=== PATIENT | male | born 1955 | race Caucasian/White ===

== ENCOUNTER 2016-06-07 10:51 | Day surgery (SDC) | payer OTHER ==
[~2016-06-07] VITALS: Ht 170.2 cm; Wt 75.8 kg
[2016-06-07] VITALS (8 sets, daily range): BP systolic 99–128; BP diastolic 57–82; PULSE 60–85; RESP 12–18; O2SAT 94–97
[~2016-06-07 10:51] MED LIST: CITA20TA11 PO; DEXT350P5 PO; IBRU140C PO; LOPE1TAB13 PO; LORA0.5T PO; OMEP20TA24 PO; OXYC5CAP4 PO; ZOLP5TAB6 PO
[2016-06-07] MEDS ORDERED: Dexamethasone 4 mg/mL Inj ONE (10:52)
[2016-06-07] MEDS ORDERED: Propofol 10,000 mCg/mL 20 mL Inj ONE (10:52)
[2016-06-07] MEDS ORDERED: MetoCLOpramide 5 mg/mL 2 mL Inj ONE (10:52)
--- NOTE | 2016-06-07 10:56 | PCM.HPANE ---
Patient Data Date of Service: Jun 07, 2016 Surgeon Admitting Provider: Attending Provider:Marky Small MD Primary Care Physician:Marcia Carreno MD Other Provider:Amy Britt Anesthesia Reason for Visit Lymphoma Ht/WT & BMI Height (Feet): 5 Height (Inches): 7 Weight (Kilograms): 75.75 Body Mass Index 26.00 Allergies Coded Allergies: No Known Allergies (Unverified Allergy, Unknown, 01/01/14) ondansetron (Verified Adverse Reaction, Intermediate, 10/20/15) DEVELOPED DIVERTIULOSIS Past Anesthesia History Anesthesia History: Denies:: Anesthesia Reactions Diabetes History Hx Diabetes?: No MRSA MRSA: No Medications Reported Medications Dextrin (Fiber)350 Gm [id number] Gm PO 09/07/15 Omeprazole Magnesium (Prilosec Otc)20 Mg Tablet.dr20 Mg PO DAILY #1 PKG Ref 0 09/07/15 Loperamide/Simethicone (Imodium Multi-Symptom Rel Cplt)1 Each Tablet1 Each PO PRN For Pain 09/07/15 Citalopram 20 Mg Hupnly59 Mg PO DAILY Ref 0 02/04/15 Lorazepam 0.5 Mg Tablet0.5 Mg PO TID PRN For Anxiety Ref 0 04/09/14 Ibrutinib (Imbruvica)140 Mg Ogofwpl642 Mg PO DAILY 02/04/14 oxyCODONE 5 Mg Capsule5-10 Mg PO Q4H PRN For Pain Ref 0 11/12/13 Zolpidem 5 Mg Oihduz90 Mg PO HS PRN For Insomnia 11/12/13 History History of ENT Problems?: Yes HEENT History: Positive for:: Sinus Problem Denies:: Cataracts Dysphagia Hx of Heart Problems?: Yes Cardiovascular History: Positive for:: Edema (Occasionally in feet) Denies:: Atrial Fibrillation Cardiac Surgery Chest Pain Congestive Heart Failure Heart Murmur Hypertension Irregular Heartbeat Pacemaker Thrombophlebitis Valvular Heart Disease Hx of Respiratory Problem?: Yes Respiratory History: Positive for:: Dyspnea Denies:: Asthma COPD Chest Surgery Emphysema Hemoptysis Oxygen Administration Pneumonia Tuberculosis Use of C-PAP Machine Hx Neurologic Problems?: Yes Neurological History: Positive for:: Dizziness Denies:: Alzheimer's Disease CVA Dementia Headaches Multiple Sclerosis Parkinson's Disease Seizures Hx of GI Problems?: Yes Gastrointestinal History: Positive for:: Gastroesphageal Reflux (Vivas's Disease) Heartburn Rectal Bleeding Denies:: Cirrhosis Diverticulitis Gastrointestinal Bleeding Hepatitis Hiatal Hernia Hx of Problems?: Yes Genitourinary History: Denies:: HX of Hemodialysis Kidney Stones Urinary Tract Infection HX of Peritoneal Dialysis: No Male Hx: Denies:: Prostate Problems Scrotal Mass Testicular Surgery Skin History: Denies:: History Skin Disorders? Pressure Ulcers Hx Musculoskeletal Problems?: Yes Musculoskeletal History: Positive for:: Back Injury Denies:: Joint Replacement Musculoskeletal Trauma Hx of Psycho/Social Problems?: Yes Psycho Social History: Positive for:: Anxiety Hx Depression Denies:: Bipolar Disorder Suicide Attempt Hx Surgeries?: Yes (Lymph node excisions, R knee arthroscopy) Hx Any Other Health Problems?: Yes Other History: Positive for:: Cancer (mantle cell lymphoma- current admission problem) Hospitalization Denies:: Endocrine Disease Thyroid Disease History Blood Transfusions: Denies:: Blood Transfuse Reaction Blood Transfusions Hx Diabetes: No Hx Alcohol Use: YesAlcoholic Drinks Per Day: occ beerHx Substance Use: Yes ( marijauna occasional) Smoking Status: Never Smoker Have You Smoked inLast 12 mo: No Stop/Bang S-Snoring: Do You Snore Loudly: No T-Tired: feel tired, fatigued: No O-Obsered: Observed not breath: No P-Blood Pressure: treated: No B- Body Mass Index > 35 kg/m2: No A- Age over 50: Yes N- Neck Large Circumference: No G- Gender Male: Yes MANDIE Total Score: 2 MANDIE Risk Assessment: Low Risk, <3 Yes Risk Assessment Category Category 1A: Patient has history of documented sleep apnea, and HAS NOT received any narcotic, sedative or anesthesia administration during this stay. Category 1B: Patient has history of documented sleep apnea, and HAS received any narcotic , sedative or anesthesia administration during this stay Category 2: Patient has SUSPECTED Obstructive Sleep Apnea, and HAS received any narcotic , sedative or anesthesia administration during this stay. Category 3: Patient has SUSPECTED Obstructive Sleep Apnea and HAS NOT received narcotic, sedative or anesthesia administration during this stay. Category 4: Outpatient in Procedural Areas with known sleep apnea or who screen positive for High Risk via the STOP/BANG questionnaire. Exam Exam General Appearance: Alert, Oriented X3, Cooperative, No Acute Distress HEENT/AIRWAY: MP 2 Lungs: Clear to Auscultation, Normal Air Movement Heart: Exam Unremarkable, Regular Rate/Rhythm, No Murmurs/Rubs/Gallops Plan Impression Patient chart reviewed, patient interviewed and anesthestic plan with risks, benefits, and alternatives discussed, and informed consent obtained. ASA Physical Status: ASA3 Severe Disease Other Case changed providers to Dr. Miller. Please, disregard this note and see Dr. Chilel. Steven Estrada MD Jun 07, 2016 10:56
[2016-06-07] MEDS ORDERED: CeFAZolin Inj 2 gm / 50mL D5W IV ONE (11:20)
[2016-06-07] MEDS: Lactated Ringer's 1,000 ML IV SCH ×3 (11:29→12:25)
[2016-06-07] MEDS ORDERED: Lactated Ringer's 1,000 ML IV SCH (12:04)
[2016-06-07] MEDS ORDERED: Lactated Ringer's 500 ML IV PRN (12:04)
--- NOTE | 2016-06-07 12:04 | PCM.HPANE ---
Patient Data Surgeon Admitting Provider: Attending Provider:Marky Small MD Primary Care Physician:Marcia Carreno MD Other Provider:Carmencita Brittingham Anesthesia Reason for Visit Lymphoma Ht/WT & BMI Height (Feet): 5 Height (Inches): 7.00 Weight (Kilograms): 75.750 Body Mass Index 26.00 Allergies Coded Allergies: No Known Allergies (Unverified Allergy, Unknown, 01/01/14) ondansetron (Verified Adverse Reaction, Intermediate, 10/20/15) DEVELOPED DIVERTIULOSIS Past Anesthesia History Anesthesia History: Denies:: Anesthesia Reactions Diabetes History Hx Diabetes?: No MRSA MRSA: No Medications Home Meds Incl Beta [place]: No Reported Medications Dextrin (Fiber)350 Gm Fufeyy409 Gm PO 09/07/15 Omeprazole Magnesium (Prilosec Otc)20 Mg Tablet.dr20 Mg PO DAILY #1 PKG Ref 0 09/07/15 Loperamide/Simethicone (Imodium Multi-Symptom Rel Cplt)1 Each Tablet1 Each PO PRN For Pain 09/07/15 Citalopram 20 Mg Pakbgh83 Mg PO DAILY Ref 0 02/04/15 Lorazepam 0.5 Mg Tablet0.5 Mg PO TID PRN For Anxiety Ref 0 04/09/14 Ibrutinib (Imbruvica)140 Mg Llvtzro958 Mg PO DAILY 02/04/14 oxyCODONE 5 Mg Capsule5-10 Mg PO Q4H PRN For Pain Ref 0 11/12/13 Zolpidem 5 Mg Gvflmt21 Mg PO HS PRN For Insomnia 11/12/13 History History of ENT Problems?: Yes HEENT History: Positive for:: Sinus Problem Denies:: Cataracts Dysphagia Hx of Heart Problems?: Yes Cardiovascular History: Positive for:: Edema (Occasionally in feet) Denies:: Atrial Fibrillation Cardiac Surgery Chest Pain Congestive Heart Failure Heart Murmur Hypertension Irregular Heartbeat Pacemaker Thrombophlebitis Valvular Heart Disease Hx of Respiratory Problem?: Yes Respiratory History: Positive for:: Dyspnea Denies:: Asthma COPD Chest Surgery Emphysema Hemoptysis Oxygen Administration Pneumonia Tuberculosis Use of C-PAP Machine Hx Neurologic Problems?: Yes Neurological History: Positive for:: Dizziness Denies:: Alzheimer's Disease CVA Dementia Headaches Multiple Sclerosis Parkinson's Disease Seizures Hx of GI Problems?: Yes Gastrointestinal History: Positive for:: Gastroesphageal Reflux (Vivas's Disease) Heartburn Rectal Bleeding Denies:: Cirrhosis Diverticulitis Gastrointestinal Bleeding Hepatitis Hiatal Hernia Hx of Problems?: Yes Genitourinary History: Denies:: HX of Hemodialysis Kidney Stones Urinary Tract Infection HX of Peritoneal Dialysis: No Male Hx: Denies:: Prostate Problems Scrotal Mass Testicular Surgery Skin History: Denies:: History Skin Disorders? Pressure Ulcers Hx Musculoskeletal Problems?: Yes Musculoskeletal History: Positive for:: Back Injury Denies:: Joint Replacement Musculoskeletal Trauma Hx of Psycho/Social Problems?: Yes Psycho Social History: Positive for:: Anxiety Hx Depression Denies:: Bipolar Disorder Suicide Attempt Hx Surgeries?: Yes (Lymph node excisions, R knee arthroscopy) Hx Any Other Health Problems?: Yes Other History: Positive for:: Cancer (mantle cell lymphoma- current admission problem) Hospitalization Denies:: Endocrine Disease Thyroid Disease History Blood Transfusions: Denies:: Blood Transfuse Reaction Blood Transfusions Hx Diabetes: No Hx Alcohol Use: YesAlcoholic Drinks Per Day: occ beerHx Substance Use: Yes ( marijauna occasional) Smoking Status: Never Smoker Have You Smoked inLast 12 mo: No Stop/Bang Treated for Sleep Apnea?: No Do You Have a CPAP Machine?: No S-Snoring: Do You Snore Loudly: No T-Tired: feel tired, fatigued: No O-Obsered: Observed not breath: No P-Blood Pressure: treated: No B- Body Mass Index > 35 kg/m2: No A- Age over 50: Yes N- Neck Large Circumference: No G- Gender Male: Yes MANDIE Total Score: 2 MANDIE Risk Assessment: Low Risk, <3 Yes Risk Assessment Category Category 1A: Patient has history of documented sleep apnea, and HAS NOT received any narcotic, sedative or anesthesia administration during this stay. Category 1B: Patient has history of documented sleep apnea, and HAS received any narcotic , sedative or anesthesia administration during this stay Category 2: Patient has SUSPECTED Obstructive Sleep Apnea, and HAS received any narcotic , sedative or anesthesia administration during this stay. Category 3: Patient has SUSPECTED Obstructive Sleep Apnea and HAS NOT received narcotic, sedative or anesthesia administration during this stay. Category 4: Outpatient in Procedural Areas with known sleep apnea or who screen positive for High Risk via the STOP/BANG questionnaire. Low Risk, <3 Yes Exam Exam Vital Signs Vital Signs Date Time Temp Pulse Resp B/P Pulse Ox O2 Delivery O2 Flow Rate FiO2 06/07/16 11:19 36.4 85 16 114/82 95 Room Air General Appearance: Oriented X3 HEENT/AIRWAY: MP 2 Lungs: Normal Air Movement Heart: Regular Rate/Rhythm Meds/Labs/Diagnostics Admission Meds Current Medications Lactated Ringer's (Lr) 1,000 ml @ 120 mls/hr Q8H20M IV Last administered on t 11:29; Start 06/07/16 at 05:00; Stop 06/07/16 at 13:19 Plan Impression Patient chart reviewed, patient interviewed and anesthestic plan with risks, benefits, and alternatives discussed, and informed consent obtained. NPO Status: 0900 , PT STATES, HAS THE WATER TO SWISH AND SPIT ASA Physical Status: ASA2 Mod Systemic Disease Anesthetic Plan: GA Bene/Risks/Altern/Consents: Yes HP Complete Prior to Induction: Yes Lucian Miller MD Jun 07, 2016 12:03
[2016-06-07] MEDS ORDERED: fentaNYL-PF 50 mCg/mL 2 mL Inj IVPUSH PRN (12:05)
[2016-06-07] MEDS ORDERED: MetoCLOpramide 5 mg/mL 2 mL Inj IVPUSH PRN (12:05)
[2016-06-07] MEDS ORDERED: HYDROmorphone 1 mg/mL Inj IVPUSH PRN (12:05)
[2016-06-07] MEDS ORDERED: Ondansetron 2 mg/mL 2 mL Inj IVPUSH PRN (12:05)
[2016-06-07] MEDS ORDERED: EPHEDrine Sulfate 50 mg/mL Inj IVPUSH PRN (12:05)
[2016-06-07] MEDS ORDERED: Phenylephrine 10,000 mCg/mL Inj IVPUSH PRN (12:05)
[2016-06-07] MEDS ORDERED: Dexamethasone 4 mg/mL Inj IVPUSH PRN (12:05)
[2016-06-07] MEDS: CeFAZolin Inj 2 GM in IV Premix 1 EACH IV ONE ×2 (12:16→12:30)
[2016-06-07] MEDS ORDERED: Bupivacaine-MPF 0.25%/EPI 30 mL Inj INJ ONE (12:44)
[2016-06-07] MEDS ORDERED: HepLOK Flush 100 unit/mL 5 mL Inj IVFLUSH ONE (12:44)
--- NOTE | 2016-06-07 13:47 | PCM.ANEP1 ---
Post Anesthesia Phase 1 PACU Phase 1 Assessment Date of Service: Jun 07, 2016 Vital Signs Vital Signs Date Time Temp Pulse Resp B/P Pulse Ox O2 Delivery O2 Flow Rate FiO2 06/07/16 13:30 36.6 66 12 99/62 94 Room Air 06/07/16 13:25 67 15 103/66 97 Room Air 06/07/16 13:20 71 18 122/77 95 Room Air 06/07/16 13:15 36.1 128/81 06/07/16 11:19 36.4 85 16 114/82 95 Room Air Anesthetic Administered: GA Level of Alertness: Awake, talking Pain: No Nausea or Vomiting: No Oxygen Delivery: Room Air Lungs: Normal Air Movement Lucian Miller MD Jun 07, 2016 13:47
--- NOTE | 2016-06-07 13:47 | PCM.ANEP2 ---
Post Anesthesia Evaluation ASA/CMS Post Anesthesia VS in Patient's Normal Range?: Yes Resp Stable; Airway Patent?: Yes CV Function & Hydration Stable: Yes Mental Status Recovered?: Yes Pain control Satisfactory?: Yes N/V Control Satisfactory?: Yes Lucian Miller MD Jun 07, 2016 13:47
--- NOTE | 2016-06-07 14:12 | DRSVH ---
PROCEDURE: X-RAY CHEST ONE VIEW, PORTABLE ([id number]) INDICATIONS: PORT TECHNIQUE: One view of the chest was acquired. COMPARISON: [facility], CR, CHEST 1VW (PORTABLE), 05/25/2013, 10:32. [facility], CR, CHEST 1VW (PORTABLE), 12/25/2012, 10:12. FINDINGS: Surgical changes and devices: Left chest wall phani catheter, tip of which is in the upper SVC. Lungs and pleura: No pleural effusions or pneumothorax. Lungs are clear. Mediastinum: Mediastinal contours appear normal. Heart size is normal. Bones and chest wall: No suspicious bony lesions. Overlying soft tissues appear unremarkable. IMPRESSION: 1. No acute process. 2. No complication following left-sided port placement. Dictated by: Zita Yuan M.D. on 06/07/2016 at 14:00 Approved by: Zita Yuan M.D. on 06/07/2016 at 14:11
--- NOTE | 2016-06-08 01:30 | OP ---
[address] [address] OPERATIVE REPORT PATIENT: ANDREIA CHAVEZ : 1955 MR#: [id number] ADMIT: 06/07/2016 JOB ID: [id number] DATE OF SURGERY: 06/07/2016 ANESTHESIA: General. PREOPERATIVE DIAGNOSIS(ES): Lymphoma. POSTOPERATIVE DIAGNOSIS(ES): Lymphoma. OPERATIVE PROCEDURE: Insertion of left subclavian vein Port-A-Cath using fluoroscopy with interpretation. SURGEON: Marky Small MD. H[employer] DRILL OPERATOR: Ryder Bell PA-C. COMPLICATIONS: None. ESTIMATED BLOOD LOSS: Minimal. CONDITION: Satisfactory. SPECIMEN: None. FINDINGS: A standard port was placed through the left subclavian vein. INDICATIONS/SIGNIFICANT HISTORY: The patient is a 61-year-old man who first presented with lymphoma in 2012. He has undergone multiple different treatments. He is scheduled to undergo chemotherapy in the near future. OPERATIVE TECHNIQUE: The patient was taken to the operating room and placed in supine position. General anesthesia was administered and perioperative antibiotics were given. The neck and chest were prepped and draped in standard surgical fashion and procedure pause performed. The left subclavian vein was accessed using the first pass of the finder needle. A wire was inserted in the vein and position confirmed with fluoroscopy. The wire was seen to course through the heart down into the inferior vena cava. Local anesthetic was injected and a subcutaneous pocket was created in the left anterior chest. Standard Port-A-Cath was secured in place using three 2-0 Prolene sutures. The catheter was tunneled up to the wire exit point and inserted into the vein under fluoroscopic visualization using Seldinger technique. The port aspirated and flushed nicely. This was locked with heparin. The skin was closed using 3-0 Vicryl deep dermal, followed by running 4-0 Monocryl. Dermabond was applied. The entire procedure was well tolerated without complication.
== END 2016-06-07 23:59 | disposition home or self-care (01) ==
LOC: SAS 10:51
PROVIDERS: ATTEND General Practice
DX: C83.10 Mantle cell lymphoma, unspecified site (principal); K21.9 Gastro-esophageal reflux disease without esophagitis; R06.00 Dyspnea, unspecified; F32.9 Major depressive disorder, single episode, unspecified; K22.70 Barrett's esophagus without dysplasia; F41.9 Anxiety disorder, unspecified; F12.90 Cannabis use, unspecified, uncomplicated
CPT/HCPCS: 36561; 71010; 77001; C1788; J0690; J1100; J1642; J2765; J7120